=== PATIENT | female | born 1970 ===

== ENCOUNTER 2017-07-27 05:52 | Day surgery (SDC) | payer OTHER ==
[2017-07-21 12:44] VITALS: BMI 24.1
[2017-07-27] MEDS ORDERED: ceFAZolin IV 1 gm in Dextrose 0 GM/0 ML BAG IVPB ONE (07:20)
[2017-07-27] MEDS ORDERED: Bupivacaine HCl 0.25% PF (10 ml) Inj ONE (07:20)
[2017-07-27] MEDS ORDERED: Midazolam 2 MG/2 ML VIAL ONE (07:33)
[2017-07-27] MEDS ORDERED: Propofol 10 mg/ml Inj (20 ML) ONE (07:33)
[2017-07-27] MEDS ORDERED: Clindamycin 600mg/50ml NS 600 MG/50 ML BAG IVPB ONE (07:36)
[2017-07-27] MEDS ORDERED: HYDROmorphone 0.5 mg/0.5 ml ISec IVP PRN (09:26)
--- NOTE | 2017-07-27 10:51 | PCM.SURG1 ---
Surgeon's Initial Post Op Note - Surgeon's Notes Surgeon: Fatimah Medical Billing Service: PGY4 Type of Anesthesia: General Endo, Local Pre-Operative Diagnosis: Bilateral Breast cysts Operative Findings: see op note Post-Operative Diagnosis: Bilateral Breast cysts Operation Performed: Excision of Bilateral Breast cysts with ultrasound guidance Specimen/Specimens Removed: breast cysts Estimated Blood Loss: EBL {In ML}: 15 Blood Products Given: N/A Drains Used: No Drains Post-Op Condition: Good Date of Surgery/Procedure: 07/27/17 Time of Surgery/Procedure: 07:50
[2017-07-27] MEDS ORDERED: Oxycodone/Acetaminophen 5/325 mg Tab PO ONE (10:55)
[2017-07-27 12:34] VITALS: RESP 16; O2SAT 95
[2017-07-27 13:49] VITALS: BP 117/73; PULSE 79; TEMP 97.3
--- NOTE | 2017-07-27 23:49 | OP ---
PROCEDURE DATE: 07/27/2017. PREOPERATIVE DIAGNOSES: 1. Left breast cyst at 1 and 2 o'clock position. 2. Right breast cyst at 9 and 10 o'clock position. 3. Right breast cyst at 12 o'clock position. POSTOPERATIVE DIAGNOSES: 1. Left breast cyst at 1 and 2 o'clock position. 2. Right breast cyst at 9 and 10 o'clock position. 3. Right breast cyst at 12 o'clock position. PROCEDURES DONE: 1. Excision of the left breast mass at 1 and 2 o'clock position. 2. Excision of the right breast mass at 9 and 10 o'clock position. 3. Excision of the right breast mass at 12 o'clock position. 4. Intraoperative ultrasound of breast. SURGEON: Joseph Sheridan MD HORTICULTURE SUPERVISOR: Nicolás Sibley, PGY-4 resident. TYPE OF ANESTHESIA: General endotracheal tube anesthesia. ESTIMATED BLOOD LOSS: Around 30 mL. DRAIN: None. PATHOLOGY: 1. Left breast 1 and 2 o'clock position mass. 2. Right breast 9 and 10 o'clock position mass. 3. Right breast 12 o'clock position mass was sent for the pathology. COMPLICATIONS: None. INTRAOPERATIVE FINDINGS: Under ultrasound guidance, the left breast, right breast and right mid breast cyst was identified and postoperative confirmation was also done for complete removal of the cyst. DESCRIPTION OF PROCEDURE: On intraoperative steps, this is a 47-year-old female who was diagnosed with large breast cyst of left and right side and the patient had chronic bilateral breast pain and the patient was consented for the excision of the bilateral breast cyst. The patient was brought to the OR, placed supine on operating table after induction of the anesthesia. Both breasts and upper chest and the neck was prepped and draped in the usual sterile fashion. First under ultrasound guidance, the left and 1 and 2 o'clock positioned cyst was identified and first the curvilinear incision was made after incising the skin and subcutaneous tissue. The upper and lower flap was created. The breast tissue was entered and the cyst was completely excised after medial, lateral, inferior and superior dissection. There was another extension of the cyst laterally, so that was also excised. The hemostasis was achieved. The wound was irrigated and wound was closed in a multiple layer. The breast tissue with a 2-0 Vicryl, another layer of the breast tissue with 3-0 Vicryl and the skin with the 4-0 Monocryl and dry sterile dressing was applied. Now, the right side of the breast ultrasound was done and the 9 and 10 o'clock as well as 12 o'clock cyst was identified. First the 9 and 10 o'clock incision was made, upper and lower flap was created. The dissection was carried down through the breast tissue to identify the breast cyst under ultrasound guidance and the large cyst was excised approximately 4 x 3 cm size and it was sent to the table for the pathology. Hemostasis was achieved. The wound was irrigated and the wound was closed in multiple layers subcu with 2-0 Vicryl, skin with a 4-0 Monocryl. Now the right breast 12 o'clock incision was made and ultrasound-guided breast cyst was identified. The incision was carried down the skin, subcu, and breast tissue and the dissection was carried down deep up to the breast cyst and the breast cyst was completely excised. Ultrasound-guided confirmation was done after complete removal of all the three cysts and the wound was irrigated and wound was closed in a multiple layer. The breast tissue was approximated with 2-0 Vicryl and skin with 4-0 Monocryl and dry sterile dressing was applied. The patient tolerated the procedure well. Count of the instrument and gauze was correct. There was no apparent complication. The patient was reversed from anesthesia, sent to the postanesthesia care unit in stable condition. Joseph Sheridan MD
== END 2017-07-27 13:10 | disposition home or self-care (01) ==
LOC: C.SDS 05:52
PROVIDERS: ATTEND Surgery Surgical Critical Care
DX: N60.09 Solitary cyst of unspecified breast (principal); N64.4 Mastodynia; N60.01 Solitary cyst of right breast; N60.02 Solitary cyst of left breast; N63.20 Unspecified lump in the left breast, unspecified quadrant
CPT/HCPCS: 19120; 88305; J1170; J2250; J2704; J3010